=== PATIENT | male | born 1960 | race Two or more races ===

== ENCOUNTER 2023-03-23 13:20 | Emergency (ER) | payer MEDICAID, OTHER ==
[~2023-03-23] VITALS: Ht 170.2 cm; Wt 82.6 kg
[2023-03-23 14:54] VITALS: BP 133/82
== END 2023-03-23 16:19 | disposition home or self-care (01) ==
LOC: ER 13:20
DX: G44.209 Tension-type headache, unspecified, not intractable (principal); E11.9 Type 2 diabetes mellitus without complications; I10 Essential (primary) hypertension; Z79.899 Other long term (current) drug therapy
CPT/HCPCS: 70450; 82962

== ENCOUNTER 2024-05-27 05:36 | Emergency (ER) | payer BC, MEDICAID ==
[~2024-05-27] VITALS: Ht 167.6 cm; Wt 78.2 kg
[2024-05-27 06:27] VITALS: BP 116/75; PULSE 112; RESP 20; TEMP 97.3; O2SAT 98
[2024-05-27] MEDS: KETOROLAC TROMETH 30 MG/ML 1ML VIAL IM ONE (07:02)
[2024-05-27] MEDS ORDERED: HYDR-4902 PO (08:24)
== END 2024-05-27 08:35 | disposition home or self-care (01) ==
LOC: ER 05:36
DX: S92.322A Displaced fracture of second metatarsal bone, left foot, initial encounter for closed fracture (principal); S92.332A Displaced fracture of third metatarsal bone, left foot, initial encounter for closed fracture; S92.342A Displaced fracture of fourth metatarsal bone, left foot, initial encounter for closed fracture; I10 Essential (primary) hypertension; E11.9 Type 2 diabetes mellitus without complications; W11.XXXA Fall on and from ladder, initial encounter; Y93.89 Activity, other specified; Y92.89 Other specified places as the place of occurrence of the external cause; Y99.8 Other external cause status
CPT/HCPCS: 73610; 73630; 96372; 99284; J1885

== ENCOUNTER 2024-07-13 20:05 | Inpatient (IN) | payer BC, MEDICAID ==
[~2024-07-13] VITALS: Ht 167.6 cm; Wt 78.9 kg
[~2024-07-13 20:05] MED LIST: HYDR-4902 PO
[2024-07-13 21:14] LABS: Basophils # (auto) 0 10 ^3/uL (0-0.2); Basophils % (auto) 0.3 % (0.0-2.0); Eosinophils # (auto) 0 10 ^3/uL (0-0.8); Eosinophils % (auto) 0.4 % (0.0-7.0); Hematocrit 42.3 % (41.0-53.0); Hemoglobin 14.1 g/dL (13.5-17.5); Lymphocytes % (auto) 26.4 % (10.0-50.0); Mean Corpuscular Hemoglobin 29.8 pg (28.0-32.0); Mean Corpuscular Hgb Conc. 33.5 g/dL (32.0-36.0); Mean Corpuscular Volume 89.1 fL (80.0-100.0); Monocytes % (auto) 9.2 % (0.0-12.0); Neutrophils # (auto) 7.3 10 ^3/uL (1.6-8.6); Neutrophils % (auto) 63.7 % (37.0-80.0); Platelet Count (auto) 310 10^3/uL (140-450); Red Blood Cells 4.74 10^6/uL (4.5-5.90); Red Cell Distribution Width 14.1 % (11.8-14.3); White Blood Cell 11.4 10^3/uL (4.4-10.8)
[2024-07-13 21:30] LABS: Alanine Aminotransferase 113 U/L (7-40); Albumin 4.6 g/dL (3.2-4.8); Alkaline Phosphatase 123 U/L (46-116); Anion Gap 10 (5-15); Aspartate Aminotransferase 77 U/L (13-40); BUN/Creatinine Ratio 10.8 (10.0-20.0); Blood Urea Nitrogen 32 mg/dL (9-23); Calcium 10.1 mg/dL (8.7-10.4); Carbon Dioxide 22 mmol/L (20-31); Chloride 104 mmol/L (98-107); Glucose 168 mg/dL (74-106); Potassium 4.7 mmol/L (3.5-5.1); Sodium 136 mmol/L (136-145)
[2024-07-13 21:31] LABS: Bilirubin, Total 0.6 mg/dL (0.2-1.0); Total Protein 7.8 g/dL (5.7-8.2)
[2024-07-13] MEDS: SODIUM CHLORIDE 0.9% 1,000 ML IV ONE (23:14)
[2024-07-13 23:25] VITALS: PULSE 85; RESP 15; O2SAT 96
[2024-07-14] VITALS (9 sets, daily range): BP systolic 112–146; BP diastolic 67–84; PULSE 63–88; RESP 17–20; TEMP 97.5–98; O2SAT 84–98
[2024-07-14] MEDS ORDERED: ACETAMINOPHEN 325 MG TAB PO PRN
[2024-07-14] MEDS ORDERED: DEXTROSE (50%) 50ML SYRG IV PRN
[2024-07-14] MEDS ORDERED: MORPHINE SULFATE INJ 2 MG/ml SYRG IV PRN ×2
[2024-07-14] MEDS ORDERED: ONDANSETRON HCL 4 MG/2 ML VIAL IV PRN
[2024-07-14] MEDS ORDERED: DOCUSATE SOD 100 MG CAP PO PRN
[2024-07-14] MEDS ORDERED: NITROGLYCERIN 0.4 MG SL TAB SL PRN
[2024-07-14] MEDS ORDERED: HYDROcodone-ACET 5/325MG TAB PO PRN
[2024-07-14] MEDS: ATORVASTATIN 20 MG TAB PO ONE (00:24)
[2024-07-14] MEDS: SODIUM CHLORIDE 0.9% 1,000 ML IV ONE (00:24)
[2024-07-14 02:02] LABS: Urine Bacteria None Seen /hpf (None Seen); Urine WBC None Seen /hpf (0 - 3)
[2024-07-14 02:23] LABS: Urine Blood TRACE /uL (Negative); Urine Clarity Clear (Clear); Urine Color Light-Yellow (Yellow); Urine Mucus FEW (None Seen); Urine Protein, UAD TRACE (Negative); Urine Specific Gravity 1.015 (1.001-1.035); Urine Urobilinogen Normal (Negative); Urine pH 5.5 (5.0-9.0)
[2024-07-14] MEDS ORDERED: METF-372 PO (05:04)
[2024-07-14] MEDS ORDERED: ATOR20TA50 PO (05:04)
[2024-07-14] MEDS ORDERED: OMEP20TA PO (05:04)
[2024-07-14] MEDS ORDERED: LISI40TA16 PO (05:04)
[2024-07-14] MEDS ORDERED: GLIP5TAB21 PO (05:04)
[2024-07-14 06:11] LABS: Basophils # (auto) 0 10 ^3/uL (0-0.2); Basophils % (auto) 0.3 % (0.0-2.0); Eosinophils # (auto) 0.2 10 ^3/uL (0-0.8); Eosinophils % (auto) 1.8 % (0.0-7.0); Hematocrit 38.1 % (41.0-53.0); Lymphocytes # (auto) 3.1 10 ^3/uL (0.4-5.4); Lymphocytes % (auto) 32.3 % (10.0-50.0); Mean Corpuscular Hemoglobin 30.4 pg (28.0-32.0); Mean Corpuscular Hgb Conc. 34.1 g/dL (32.0-36.0); Mean Corpuscular Volume 89.2 fL (80.0-100.0); Monocytes # (auto) 1.1 10 ^3/uL (0-1.3); Monocytes % (auto) 11.3 % (0.0-12.0); Neutrophils # (auto) 5.2 10 ^3/uL (1.6-8.6); Neutrophils % (auto) 54.3 % (37.0-80.0); Platelet Count (auto) 282 10^3/uL (140-450); Red Blood Cells 4.27 10^6/uL (4.5-5.90); Red Cell Distribution Width 14.2 % (11.8-14.3); White Blood Cell 9.6 10^3/uL (4.4-10.8)
[2024-07-14] MEDS: ACCU-CHEK COMFORT CURVE STRIP VI SCH (06:18)
[2024-07-14] MEDS: InsuLIN REG 1unit/0.01ml Soln (100units/ml) SC SCH (06:18)
[2024-07-14 06:22] LABS: Anion Gap 8 (5-15); Carbon Dioxide 23 mmol/L (20-31); Chloride 108 mmol/L (98-107); Potassium 3.9 mmol/L (3.5-5.1); Sodium 139 mmol/L (136-145)
[2024-07-14 06:24] LABS: Calcium 9.2 mg/dL (8.7-10.4)
[2024-07-14 06:28] LABS: BUN/Creatinine Ratio 16.1 (10.0-20.0); Blood Urea Nitrogen 30 mg/dL (9-23); Glucose 79 mg/dL (74-106)
[2024-07-14] MEDS: ASPirin 81 mg TAB PO SCH (08:55)
[2024-07-14] MEDS: PANTOPRAZOLE 40 MG/10 ML VIAL INJ IV SCH (08:55)
[2024-07-14] MEDS: HEPARIN SODIUM (PORCINE) 5000 UNITS/ML 1ML VIAL SC SCH (08:59)
[2024-07-14 11:51] LABS: Magnesium 1.4 mg/dL (1.6-2.6)
[2024-07-14 11:53] LABS: Phosphorus 3.8 mg/dL (2.4-5.1)
[2024-07-14] MEDS: MAGNESIUM SULFATE 1GM/100ML 100 ML IV SCH (14:36)
[2024-07-14] MEDS: MAGNESIUM OXIDE 400 MG TAB PO SCH (21:58)
[2024-07-15] VITALS (7 sets, daily range): BP systolic 126–136; BP diastolic 75–81; PULSE 66–83; RESP 16–20; TEMP 97.9–98.6; O2SAT 96–98
[2024-07-15 07:35] LABS: Basophils # (auto) 0 10 ^3/uL (0-0.2); Basophils % (auto) 0.4 % (0.0-2.0); Eosinophils # (auto) 0.2 10 ^3/uL (0-0.8); Eosinophils % (auto) 2.1 % (0.0-7.0); Hematocrit 40.1 % (41.0-53.0); Hemoglobin 13.7 g/dL (13.5-17.5); Lymphocytes # (auto) 2.3 10 ^3/uL (0.4-5.4); Lymphocytes % (auto) 29.6 % (10.0-50.0); Mean Corpuscular Hemoglobin 30.3 pg (28.0-32.0); Mean Corpuscular Hgb Conc. 34.2 g/dL (32.0-36.0); Mean Corpuscular Volume 88.7 fL (80.0-100.0); Monocytes # (auto) 0.7 10 ^3/uL (0-1.3); Monocytes % (auto) 9.2 % (0.0-12.0); Neutrophils # (auto) 4.5 10 ^3/uL (1.6-8.6); Neutrophils % (auto) 58.7 % (37.0-80.0); Nucleated Red Blood Cells % 0.2 %; Platelet Count (auto) 298 10^3/uL (140-450); Red Blood Cells 4.52 10^6/uL (4.5-5.90); Red Cell Distribution Width 14.1 % (11.8-14.3); White Blood Cell 7.6 10^3/uL (4.4-10.8)
[2024-07-15 07:57] LABS: Alanine Aminotransferase 124 U/L (7-40); Albumin 4.2 g/dL (3.2-4.8); Alkaline Phosphatase 106 U/L (46-116); Anion Gap 8 (5-15); Aspartate Aminotransferase 101 U/L (13-40); BUN/Creatinine Ratio 16.8 (10.0-20.0); Blood Urea Nitrogen 21 mg/dL (9-23); Calcium 9.8 mg/dL (8.7-10.4); Carbon Dioxide 26 mmol/L (20-31); Chloride 105 mmol/L (98-107); Cholesterol 106 mg/dL (< 200); Glucose 177 mg/dL (74-106); HDL Cholesterol 37 mg/dL (40-59); LDL Cholesterol 49 mg/dL (< 100); Magnesium 1.7 mg/dL (1.6-2.6); Potassium 4.2 mmol/L (3.5-5.1); Sodium 139 mmol/L (136-145); Triglycerides 139 mg/dL (< 150)
[2024-07-15 07:58] LABS: Bilirubin, Total 0.6 mg/dL (0.2-1.0)
[2024-07-15] MEDS ORDERED: OMEP20TA PO (15:40)
== END 2024-07-15 17:48 | disposition home or self-care (01) | DRG 641 ==
LOC: ER 20:05 → TELE 07-14 00:09 → TELE-E-ADS 07-14 02:55
PROVIDERS: ADMIT Nurse Practitioner Family; ATTEND Hospitalist
DX: E86.0 Dehydration (principal); N17.9 Acute kidney failure, unspecified; E11.65 Type 2 diabetes mellitus with hyperglycemia; K21.9 Gastro-esophageal reflux disease without esophagitis; E78.5 Hyperlipidemia, unspecified; I12.9 Hypertensive chronic kidney disease with stage 1 through stage 4 chronic kidney disease, or unspecified chronic kidney disease; E11.22 Type 2 diabetes mellitus with diabetic chronic kidney disease; N18.9 Chronic kidney disease, unspecified; Z82.49 Family history of ischemic heart disease and other diseases of the circulatory system; Z83.3 Family history of diabetes mellitus; F10.90 Alcohol use, unspecified, uncomplicated
CPT/HCPCS: 36415; 76705; 76775; 80048; 80053; 80061; 81001; 82306; 82962; 83036; 83735; 83970; 84100; 84484; 85025; 93306; G0378; J1815; J2470

== ENCOUNTER 2024-10-19 16:15 | Emergency (ER) | payer BC, MEDICAID ==
[~2024-10-19] VITALS: Ht 170.2 cm; Wt 84.0 kg
[~2024-10-19 16:15] MED LIST changes: +GLIP5TAB21 PO; -HYDR-4902 PO; +LISI40TA16 PO; +METF-372 PO; +OMEP20TA PO
--- NOTE | 2024-10-19 16:35 | ED.PDOC ---
HPI (NEURO) HPI Comments 63y M who presents to the ED for chief compliant of generalized weakness. Pt states he has has been having weakness, dizziness, for the past 3 days. Pt states he has also been having high blood pressure and associated high blood sugar for the past 3 days. Pt has history of diabetes and states he is complaint with his meds. Pt in the ED, has noted acc check of 464 with all other vitals in normal range. Pt otherwise denies nausea, vomiting, diarrhea, fever, cough, chills, chest pain or shortness of breath. Pt otherwise is alert and oriented x 4 and able to answer all questions at this time. Chief Complaint: generalized weakness Time Seen by MD: 16:31 Primary Care Provider: NEO Bowden Notes: Medications Information Source: Patient Mode of Arrival: Ambulatory Brought in by: self Past Medical History PAST MEDICAL HISTORY: DM, High Lipids, HTN Family History Family History: Reviewed,noncontributory to illness Social History Smoker: Non-Smoker Alcohol: Denies ETOH Use Drugs: Denies Drug Use Lives In: Home Constitutional: reports: fatigue, malaise, weakness; denies: chills, diaphoresis, fever, sweats, others EENTM: denies: blurred vision, double vision, ear bleeding, ear discharge, ear drainage, ear pain, ear ringing, eye pain, eye redness, hearing loss, mouth pain, mouth swelling, nasal discharge, nose bleeding, nose congestion, nose pain, photophobia, tearing, throat pain, throat swelling, voice changes, others Respiratory: denies: cough, hemoptysis, orthopnea, SOB at rest, shortness of breath, SOB with excertion, stridor, wheezing, others Cardiovascular: denies: chest pain, dizzy spells, diaphoresis, Dyspnea on exert ion, edema, irregular heart beat, left arm pain, lightheadedness, palpitations, PND, syncope, others Gastrointestinal: denies: abdomen distended, abdominal pain, blood streaked bowels, constipated, diarrhea, dysphagia, difficulty swallowing, hematemesis, melena, nausea, poor appetite, poor fluid intake, rectal bleeding, rectal pain, vomiting, others Genitourinary: denies: burning, dysuria, flank pain, frequency, hematuria, incontinence, penile discharge, penile sore, pain, testicle pain, testicle swelling, urgency, others Neurological: reports: dizziness; denies: fainting, headache, left sided numbness, left sided weakness, numbness, paresthesia, pre-existing deficit, righ t sided numbness, right sided weakness, seizure, speech problems, tingling, tremors, weakness, others Musculoskeletal: denies: back pain, gout, joint pain, joint swelling, muscle pain, muscle stiffness, neck pain, others Integumetry: denies: bruises, change in color, change in hair/nails, dryness, laceration, lesions, lumps, rash, wounds, others Allergic/Immunocompromised: denies: Difficulty Healing, Frequent Infections, Hives, Itching, others Hematologic/Lymphatic: denies: anemia, blood clots, easy bleeding, easy bruising, swollen glands, others Endocrine: denies: excessive hunger, excessive sweating, excessive thirst, excessive urination, flushing, intolerance to cold, intolerance to heat, unexplained weight gain, unexplained weight loss, others Psychiatric: denies: anxiety, bipolar disorder, depression, hopeless, panic disorder, schizophrenia, sleepless, suicidal, others All Other Systems: Reviewed and Negative Physical Exam General Appearance: Moderate Distress HEENT: Normal ENT Inspection, Pharynx Normal, TMs Normal Neck: Full Range of Motion, Non-Tender, Normal, Normal Inspection Respiratory: Chest Non-Tender, Lungs Clear, No Accessory Muscle Use, No Respiratory Distress, Normal Breath Sounds Cardiovascular: No Edema, No JVD, No Murmur, No Gallop, Normal Peripheral Pulses, Regular Rate/Rhythm Breast Exam: Deferred Gastrointestinal: No Organomegaly, Non Tender, No Pulsatile Mass, Normal Bowel Sounds, Soft Genitalia: Deferred Pelvic: Deferred Rectal: Deferred Extremities: No calf tenderness, Normal capillary refill, Normal inspection, Normal range of motion, Non-tender, No pedal edema Musculoskeletal : Apperance: Normal Neurologic: Alert, dietetic assistant II-XII nml as Tested, No Motor Deficits, Normal Affect, Normal Mood, No Sensory Deficits Cerebellar Function: Normal Reflexes: Normal Skin: Dry, Normal Color, Warm Peripheral Pulses: 3+ Radial (R), 3+ Radial (L) Lymphatic: No Adenopathy Was a procedure done? Was a procedure done?: No Differential Diagnosis (SZ) Seizure: Psychogenic Seizure, Closed Head Injury, CVA/TIA General Weakness: Anemia, Dehydration, Electrolyte imbalance, Encephalopathy, Vertigo: central, Vertigo: peripheral, Other (DKA, hyperglycemic state, uncontrolled DM, ) X-Ray, Labs, Meds, VS Vital Signs Date Time Temp Pulse Resp B/P (MAP) Pulse Ox O2 Delivery O2 Flow Rate FiO2 10/19/24 17:50 Room Air* 0 21 10/19/24 17:49 16 141/96 (111) 97 10/19/24 17:49 94 18 97 Room Air 10/19/24 16:36 86 10/19/24 16:20 98.9 96 18 163/105 (124) 99 Lab Test 10/19/24 17:56 10/19/24 16:27 Range/Units Urine Color Light-yellow Yellow Urine Clarity Clear Clear Urine pH 5.5 5.0-9.0 Urine Specific [place] 1.026 1.001-1.035 Urine Protein Negative Negative Urine Ketones Negative Negative Urine Blood Negative Negative /uL Urine Nitrite Negative Negative Urine Bilirubin Negative Negative Urine Urobilinogen Normal Negative mg/dL Urine Leukocyte Esterase Negative Negative /uL Urine RBC <1 0 - 3 /hpf Urine WBC None seen 0 - 3 /hpf Urine Squamous Epithelial Cells Few <5 /hpf Urine Bacteria None seen None Seen /hpf Urine Glucose 4+ H Normal mg/dL White Blood Count 8.4 4.4-10.8 10^3/uL Red Blood Count 5.14 4.5-5.90 10^6/uL Hemoglobin 15.3 13.5-17.5 g/dL Hematocrit 46.0 41.0-53.0 % Mean Corpuscular Volume 89.4 80.0-100.0 fL Mean Corpuscular Hemoglobin 29.7 28.0-32.0 pg Mean Corpuscular Hemoglobin Concent 33.3 32.0-36.0 g/dL Red Cell Distribution Width 14.5 H 11.8-14.3 % Platelet Count 273 140-450 10^3/uL Mean Platelet Volume 8.7 6.9-10.8 fL Neutrophils (%) (Auto) 57.6 37.0-80.0 % Lymphocytes (%) (Auto) 31.8 10.0-50.0 % Monocytes (%) (Auto) 8.9 0.0-12.0 % Eosinophils (%) (Auto) 1.1 0.0-7.0 % Basophils (%) (Auto) 0.6 0.0-2.0 % Neutrophils # (Auto) 4.8 1.6-8.6 10 ^3/uL Lymphocytes # (Auto) 2.7 0.4-5.4 10 ^3/uL Monocytes # (Auto) 0.7 0-1.3 10 ^3/uL Eosinophils # (Auto) 0.1 0-0.8 10 ^3/uL Basophils # (Auto) 0 0-0.2 10 ^3/uL Nucleated Red Blood Cells 0.2 % Sodium Level 133 L 136-145 mmol/L Potassium Level 4.8 3.5-5.1 mmol/L Chloride Level 101 98-107 mmol/L Carbon Dioxide Level 25 20-31 mmol/L Anion Gap 7 5-15 Blood Urea Nitrogen 14 9-23 mg/dL Creatinine 1.24 0.700-1.30 mg/dL Glomerular Filtration Rate Calc 65 >90 mL/min BUN/Creatinine Ratio 11.3 10.0-20.0 Serum Glucose 462 *H 74-106 mg/dL Calcium Level 9.7 8.7-10.4 mg/dL Troponin I High Sensitivity 7 </=54 ng/L Current Medications Medications (Trade) Dose Ordered Sig/Fabiana Route Start Time Stop Time Status Last Admin Meclizine HCl (Antivert Tablet) 25 mg ONCE ONCE PO 10/19/24 16:30 10/19/24 16:31 DC 10/19/24 17:51 EXAM: CT HEAD WITHOUT CONTRAST IMPRESSION: 1. No acute intracranial hemorrhage 2. No CT findings of territorial ischemia Patient alert. Complaining of dizziness. EKG reviewed does show changes. Vital stable. History of hypertension diabetes. Has risk factors. Blood pressure elevated. Was given clonidine. CT of the head reviewed does not show any acute changes. Reviewed his history. Explained to the patient. Continue cardiac monitoring. Time of 1ST Reevaluation: 17:00 Reevaluation 1ST: Unchanged Patient Education/Counseling: Diagnosis, Treatment Family Education/Counseling: No Family Present Departure 1 Departure Time of Disposition: 16:38 Impression: Primary Impression: Hypertensive urgency Additional Impression: Uncontrolled diabetes mellitus Qualified Codes: E13.65 - Other specified diabetes mellitus with hyperglycemia Disposition: ADMITTED INPATIENT Admit to: Med Surg Condition: Guarded Critical Care Note Critical Care Time?: Yes (45 min-critical care time only) Stability Stability form required: No Heart Score Heart Score: Heart Score Response (Comments) Value History Slightly Suspicious 0 EKG Normal 0 Age >65 2 Risk Factors >3 or Hx ASHD 2 Troponin Normal limit 0 Total 4 I personally scribed for TULIO FELIPE MD ([email or web address]) on 10/19/24 at 16:35. Electronically submitted by Etienne Saldana ([employer]). I personally scribed for TULIO FELIPE MD ([email or web address]) on 10/19/24 at 17:34. Electronically submitted by Etienne Saldana ([employer]). TULIO FELIPE MD Oct 19, 2024 16:35
--- NOTE | 2024-10-19 17:03 | DVH ---
EXAM: CT HEAD WITHOUT CONTRAST INDICATION: dizzy TECHNIQUE: CT of the head without intravenous contrast. Radiation Dose Information: CT Dose: CTDI volume is 51.9 mGy. Dose-length product is 863.9 mGy*cm The dose indicators for CT are the volume Computed Tomography (CT) Dose Index (CTDIvol) and the Dose Length Product (DLP), and are measured in units of mGy and mGy-cm, respectively. These indicators are not patient dose, but values generated from the CT scanner acquisition factors. The report includes radiation exposure data for exposures received during this examination. COMPARISON: CT HEAD WITHOUT CONTRAST on DOS: 03/23/23 FINDINGS: There is no evidence of acute intracranial hemorrhage, extra-axial collection, mass effect, midline s hift, herniation or hydrocephalus. The ventricles, sulci and cisterns are age appropriate. The perez-white differentiation is intact. Patchy periventricular and subcortical white matter hypoattenuation is nonspecific but may be related to small vessel ischemic disease. The visualized paranasal sinuses and mastoid air cells are clear. The surrounding soft tissues and osseous structures are unremarkable. IMPRESSION: 1. No acute intracranial hemorrhage 2. No CT findings of territorial ischemia
[2024-10-19 17:08] LABS: Chloride 101 mmol/L (98-107); Potassium 4.8 mmol/L (3.5-5.1)
[2024-10-19 17:09] LABS: Anion Gap 7 (5-15); Calcium 9.7 mg/dL (8.7-10.4); Carbon Dioxide 25 mmol/L (20-31)
[2024-10-19 17:11] LABS: Sodium 133 mmol/L (136-145)
[2024-10-19 17:14] LABS: BUN/Creatinine Ratio 11.3 (10.0-20.0); Blood Urea Nitrogen 14 mg/dL (9-23)
[2024-10-19 17:18] LABS: Basophils # (auto) 0 10 ^3/uL (0-0.2); Basophils % (auto) 0.6 % (0.0-2.0); Eosinophils # (auto) 0.1 10 ^3/uL (0-0.8); Eosinophils % (auto) 1.1 % (0.0-7.0); Hemoglobin 15.3 g/dL (13.5-17.5); Lymphocytes # (auto) 2.7 10 ^3/uL (0.4-5.4); Lymphocytes % (auto) 31.8 % (10.0-50.0); Mean Corpuscular Hemoglobin 29.7 pg (28.0-32.0); Mean Corpuscular Hgb Conc. 33.3 g/dL (32.0-36.0); Mean Corpuscular Volume 89.4 fL (80.0-100.0); Monocytes # (auto) 0.7 10 ^3/uL (0-1.3); Monocytes % (auto) 8.9 % (0.0-12.0); Neutrophils # (auto) 4.8 10 ^3/uL (1.6-8.6); Neutrophils % (auto) 57.6 % (37.0-80.0); Nucleated Red Blood Cells % 0.2 %; Platelet Count (auto) 273 10^3/uL (140-450); Red Blood Cells 5.14 10^6/uL (4.5-5.90); Red Cell Distribution Width 14.5 % (11.8-14.3); White Blood Cell 8.4 10^3/uL (4.4-10.8)
[2024-10-19 17:24] LABS: Glucose 462 mg/dL (74-106)
[2024-10-19 17:49] VITALS: BP 141/96; PULSE 94; RESP 18; O2SAT 97
[2024-10-19] MEDS: MECLIZINE HCL 25 MG TAB PO ONE (17:51)
[2024-10-19 18:45] LABS: Urine Bacteria None Seen /hpf (None Seen); Urine WBC None Seen /hpf (0 - 3)
[2024-10-19 18:55] LABS: Urine Blood Negative /uL (Negative); Urine Clarity Clear (Clear); Urine Color Light-Yellow (Yellow); Urine Protein, UAD Negative (Negative); Urine Specific Gravity 1.026 (1.001-1.035); Urine Squamous Epithelial Cell FEW /hpf (<5); Urine Urobilinogen Normal (Negative); Urine pH 5.5 (5.0-9.0)
--- NOTE | 2024-10-21 14:26 | ECG ---
[facility] Test Date: 2024-10-19 Test Time: 16:36:04 Pat Name: SONI FREITAS Department: ER Room: Gender: M Executive Officer: DR FERNANDO: 1960 Requested By: TULIO FELIPE Order Number: [id number] Reading MD: Waldo Dumont Measurements Intervals Ledger Rate: 86 P: 16 WY: 177 QRS: 87 QRSD: 93 T: -14 QT: 355 QTc: 425 Interpretive Statements Sinus rhythm Inferior infarct, age indeterminate Abnormal lateral Q waves Electronically Signed On 10-27-2024 14:44:08 PST by Waldo Dumont Please click the below link to view image of tracing.
== END 2024-10-20 00:13 | disposition left against medical advice (07) ==
LOC: ER 16:15
DX: I10 Essential (primary) hypertension (principal); E11.65 Type 2 diabetes mellitus with hyperglycemia; I16.0 Hypertensive urgency
CPT/HCPCS: 36415; 70450; 80048; 81001; 84484; 85025; 93005; 99284; J8597